=== PATIENT | female | born 1990 | race Caucasian/White ===

== ENCOUNTER → 2016-08-09 | Outpatient (CLI) | payer OTHER ==
[~2016-08-09] MED LIST: ALBU17IN2 INH; BACITAB3 PO; DESL5TAB4 PO; FURO20TA2 PO; KLOR1TAB77 PO; LEVO750T33 PO; MOVA1TAB2 PO; NICO21PAT TD; NO HOME MEDS; RANI15TA PO; SERT50TA PO; SUBO2MIS SL; TRAZ100T4 PO; VITMTA PO
[2016-08-09 09:50] LABS: ALBUMIN 3.7 GM/DL (3.2-5.2); ANION GAP 9 MEQ/L (8-16); BLOOD UREA NITROGEN 14 MG/DL (7-18); CALCIUM LEVEL 8.3 MG/DL (8.5-10.1); CARBON DIOXIDE LEVEL 24 MEQ/L (21-32); CHLORIDE LEVEL 109 MEQ/L (98-107); CREATININE FOR GFR 0.67 MG/DL (0.55-1.02); FREE T4 0.89 NG/DL (0.76-1.46); GLOMERULAR FILTRATION RATE > 60.0 (>60); GLUCOSE, FASTING 101 MG/DL (70-105); PHOSPHORUS LEVEL 3.3 MG/DL (2.5-4.9); SODIUM LEVEL 142 MEQ/L (136-145)
== END ==
LOC: M LAB 08:44
PROVIDERS: ATTEND Family Medicine
DX: I10 Essential (primary) hypertension (principal)

== ENCOUNTER → 2016-08-15 | Outpatient (CLI) | payer OTHER ==
[2016-08-15 16:18] LABS: MEAN CORPUSCULAR HEMOGLOBIN 33.2 pg (27.0-33.0); MEAN CORPUSCULAR HGB CONC 34.4 g/dl (32.0-36.5); MEAN CORPUSCULAR VOLUME 96.5 fl (80.0-96.0); RED CELL DISTRIBUTION WIDTH 12.8 % (11.5-14.5); WHITE BLOOD COUNT 6.8 K/mm3 (4.0-10.0)
[2016-08-15 16:38] LABS: ALBUMIN 3.7 GM/DL (3.2-5.2); ALBUMIN/GLOBULIN RATIO 1.12 (1.00-1.93); BILIRUBIN,DIRECT 0.2 MG/DL (0.0-0.2); BILIRUBIN,TOTAL 0.9 MG/DL (0.2-1.0)
[2016-08-15 19:43] LABS: EOSINOPHILS 1 % (0-5)
== END ==
LOC: M LAB 15:29
PROVIDERS: ATTEND Family Medicine
DX: R10.9 Unspecified abdominal pain (principal)

== ENCOUNTER → 2016-09-07 | Outpatient (CLI) | payer OTHER ==
--- NOTE | 2016-09-07 10:14 | REP ---
RIGHT UPPER QUADRANT ULTRASOUND: Real-time sonographic evaluation of the right upper quadrant performed. Multiple gallstones are seen in the gallbladder some of which are located in the neck of the gallbladder. There is no gallbladder wall thickening or pericholecystic fluid. The patient was tender at the site of the gallbladder. There is no intrahepatic or extrahepatic biliary dilatation, common bile duct measuring 3 mm in diameter. The liver and pancreas demonstrate no gross mass. Right kidney demonstrates no hydronephrosis or nephrolithiasis measuring 9.8 cm in length. Visualized abdominal aorta is normal in caliber. IMPRESSION: Multiple gallstones in the gallbladder without gallbladder wall thickening, pericholecystic fluid or biliary dilatation. Signed by Lucho Brooks MD 09/07/2016 03:26 P
== END ==
LOC: M RAD 07:18
PROVIDERS: ATTEND Family Medicine
DX: K80.20 Calculus of gallbladder without cholecystitis without obstruction (principal); R10.9 Unspecified abdominal pain

== ENCOUNTER → 2016-09-12 | Outpatient (CLI) | payer OTHER | LOC: M CARPUL 10:03 | PROVIDERS: ATTEND Family Medicine | DX: R94.31 Abnormal electrocardiogram [ECG] [EKG] (principal); Z87.74 Personal history of (corrected) congenital malformations of heart and circulatory system ==

== ENCOUNTER 2016-10-19 06:15 | Day surgery (SDC) | payer OTHER ==
[~2016-10-19] VITALS: Ht 147.3 cm; Wt 51.5 kg
[2016-10-19] VITALS (8 sets, daily range): BP systolic 103–135; BP diastolic 59–80
[~2016-10-19 06:15] MED LIST changes: +NEXP1IMP SC; +POTA20TA FT
[2016-10-19] MEDS ORDERED: LR 1,000 ML IV SCH ×2 (06:30→09:45)
[2016-10-19] MEDS ORDERED: ERTAPENEM SODIUM 1 GM in NS MINI-BAG PLUS 50 ML IV ONE (06:30)
[2016-10-19 06:43] LABS: CONTROL LINE UCG INT CTR LINE PRESENT
[2016-10-19] MEDS ORDERED: LIDOCAINE 1% SDV INJ 30 ML VIAL As Ordered ONE (07:15)
[2016-10-19] MEDS ORDERED: BUPIVACAINE HCL 0.25% 30 ML VIAL As Ordered ONE (07:15)
[2016-10-19] MEDS ORDERED: MIDAZOLAM INJ 2 MG/2 ML VIAL (J2250) As Ordered ONE (07:20)
[2016-10-19] MEDS ORDERED: LIDOCAINE 2% INJ 100 MG/5 ML SDV (FOR ANES.) As Ordered ONE (07:20)
[2016-10-19] MEDS ORDERED: PROPOFOL 200 MG/20 ML VIAL As Ordered ONE (07:20)
[2016-10-19] MEDS ORDERED: ROCURONIUM BROMIDE 50 MG/5 ML VIAL As Ordered ONE (07:20)
[2016-10-19] MEDS ORDERED: fentaNYL 250 MCG/5 ML INJECTION (J3010) As Ordered ONE (07:20)
[2016-10-19] MEDS ORDERED: ONDANSETRON 4MG/2ML VIAL (J2405) As Ordered ONE (08:24)
[2016-10-19] MEDS ORDERED: NEOSTIGMINE 1MG/ML 5 ML SYRINGE (J2710) As Ordered ONE (08:24)
[2016-10-19] MEDS ORDERED: GLYCOPYRROLATE INJ 0.2 MG/ML 2 ML VIAL As Ordered ONE (08:24)
[2016-10-19] MEDS ORDERED: dexameTHASONE 4 MG/ML 1ML VIAL (J1100) As Ordered ONE (08:24)
[2016-10-19] MEDS ORDERED: KETOROLAC 60 MG/2 ML VIAL (J1885) As Ordered ONE (08:41)
[2016-10-19] MEDS ORDERED: HYDROmorphone HCL 2 MG/ML 1ML VIAL (J1170) As Ordered ONE (09:01)
[2016-10-19] MEDS ORDERED: ACETAMINOPHEN TAB 650MG DOSE (2X325MG) PO PRN (09:15)
[2016-10-19] MEDS ORDERED: PERCOCET 5MG/325MG TAB PO PRN (09:15)
[2016-10-19] MEDS ORDERED: IBUP600T26 PO (09:19)
--- NOTE | 2016-10-19 09:39 | ROOPDOC ---
[facility] Report Of Operation Report of Operation DATE OF PROCEDURE: 10/19/16 PREPROCEDURE DIAGNOSES: Symptomatic Cholelithiasis. POSTPROCEDURE DIAGNOSES: Cholelithiasis, chronic cholecystitis PROCEDURE: Laparoscopic Cholecystectomy SURGEON: Lulu Reynolds MD ELECTRICIAN BUS: Julio C Mcguire MD ANESTHESIA: general ESTIMATED BLOOD LOSS: Approximately 10 mL. 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 DESCRIPTION OF PROCEDURE: . She is brought to the OR for laparoscopic cholecystectomy. She has given a dose of Invanz 1 g IV for prophylaxis given history of infective endocarditis and aortic valve replacement surgery. She was brought to the operating room, placed supine on the table. General endotracheal anesthesia started. Her abdomen prepped and draped in usual sterile fashion. She had compression stockings for DVT prophylaxis. After surgical timeout we began our surgery. Entry into the abdomen done through an incision at the bottom of the umbilicus. Veress needle inserted and intra-abdominal insufflation done to a pressure of 15 mmHg. Using the same incision a 5 mm Visiport was placed under direct vision laparoscope. She was then placed on the reverse Trendelenburg position, her right side tilted up about 30 to further expose the gallbladder. 3 working ports were placed in their usual position including 5 mm port at the epigastric area, and 3 mm ports along the right subcostal line. The gallbladder was noted to be moderately distended, extending several centimeters off from the liver edge. Liver appears smooth in appearance. Fundus of gallbladder was grasped and the gallbladder elevated superiorly exposing the infundibulum neck to gallbladder. There were some small adhesions at the underside of the gallbladder which was easily lysed. The hepato-cystic triangle was dissected both with [place] instrument and Bovie cautery. The cystic duct was identified as well as the cystic artery. There were both circumferentially dissected. The posterior wall of the neck of the gallbladder was likewise dissected free off the liver bed. Dissection of the Gallbladder neck done until we met the critical view of safety whereby only the previously identified cystic duct and cystic artery were coursing through the neck to gallbladder. The cystic artery was clipped 4 times and divided. We were able to further identify the anterior branch of the cystic artery and this was likewise clipped and divided. The cystic artery was clipped 4 times and subsequently divided. The rest of the gallbladder was then dissected off the liver bed with Bovie cautery. We enlarged the epigastric port site to accommodate the 10 mm Endo Catch bag and the gallbladder was delivered into the bag and retrieved from the epigastric port site using.. On re-insufflation, we examined our surgical site. Liver bed shows no bleeding. The clips at the cystic duct and artery were noted to be well placed. The abdomen was then deflated, all ports removed. The fascial defect at the epigastric port site was closed with 0 Vicryl. All skin incisions closed with 4-0 Monocryl in subcuticular fashion Dermabond was used for wound coverage. Patient was then promptly awake and extubated and brought to the recovery room stable sponges and instruments verified to be correct . MARIXA REYNOLDS MD October 19, 2016 08:16
[2016-10-19] MEDS ORDERED: HYDROmorphone HCL 1 MG/ML SYRINGE (J1170) As Ordered ONE ×2 (09:41→10:04)
[2016-10-19] MEDS: HYDROmorphone HCL 1 MG/ML SYRINGE (J1170) IV PRN ×5 (09:45→10:20)
[2016-10-19] MEDS ORDERED: ONDANSETRON 4MG/2ML VIAL (J2405) IV PRN (09:45)
[2016-10-19] MEDS ORDERED: fentaNYL 100 MCG/2 ML INJECTION (J3010) IV PRN (09:45)
[2016-10-19] MEDS ORDERED: ALBUTEROL SULFATE 2.5 MG/0.5 ML INH NEB SOLN As Ordered ONE (10:19)
[2016-10-19] MEDS ORDERED: ALBUTEROL SULFATE 2.5 MG/0.5 ML INH NEB SOLN INH ONE (10:45)
[2016-10-19] MEDS: SENOKOT S TAB PO SCH ×2 (11:27→21:32)
[2016-10-19] MEDS: POTASSIUM CHLORIDE 10 MEQ SR TABLET PO SCH (11:27)
[2016-10-19] MEDS: FUROSEMIDE 40 MG TAB PO SCH (11:27)
[2016-10-19] MEDS: LR 1,000 ML IV SCH ×2 (11:28→21:33)
[2016-10-19] MEDS: ASPIRIN 81 MG ENTERIC TAB PO SCH (11:28)
[2016-10-19] MEDS: PERCOCET 5MG/325MG TAB PO PRN ×2 (11:28→15:45)
[2016-10-19] MEDS ORDERED: PROMETHAZINE INJ 25 MG/ML VIAL (J2550) IV PRN (11:45)
[2016-10-19] MEDS: ONDANSETRON 4MG/2ML VIAL (J2405) IV PRN (15:45)
[2016-10-19] MEDS: KETOROLAC 30 MG/ML VIAL (J1885) IV PRN (16:22)
[2016-10-19] MEDS ORDERED: ALBUTEROL SULFATE 2.5 MG/0.5 ML INH NEB SOLN NEB ONE (20:30)
[2016-10-20] MEDS: KETOROLAC 30 MG/ML VIAL (J1885) IV PRN ×2 (00:41→09:01)
[2016-10-20 02:00] VITALS: BP 113/60
[2016-10-20] MEDS: ONDANSETRON 4MG/2ML VIAL (J2405) IV PRN (02:41)
[2016-10-20 06:00] VITALS: BP 121/61
[2016-10-20] MEDS ORDERED: METOCLOPRAMIDE INJ 10MG/2ML VIAL (J2765) IV PRN (08:45)
[2016-10-20] MEDS: FUROSEMIDE 40 MG TAB PO SCH (09:01)
[2016-10-20] MEDS: ASPIRIN 81 MG ENTERIC TAB PO SCH (09:01)
[2016-10-20] MEDS: SENOKOT S TAB PO SCH (09:01)
[2016-10-20] MEDS: POTASSIUM CHLORIDE 10 MEQ SR TABLET PO SCH (09:02)
[2016-10-20] MEDS: LR 1,000 ML IV SCH (09:02)
[2016-10-20 10:00] VITALS: BP 118/62
--- NOTE | 2016-10-20 16:40 | ECGEPIP ---
Stationary ECG Study [facility] Test Date: 2016-10-19 Pat Name: ROSELIA MORENO Department: Room: [place] [address] Gender: F Coronary Care Unit Nurse: : 1990 Requested By: DONATO Bunch Order Number: [id number] Reading MD: Aj Sotomayor Measurements Intervals [place] Rate: 77 P: 16 NH: 221 QRS: 90 QRSD: 102 T: 37 QT: 392 QTc: 444 Interpretive Statements SINUS RHYTHM WITH FIRST DEGREE AV BLOCK INCOMPLETE RIGHT BUNDLE BRANCH BLOCK NONSPECIFIC ST-T ABNORMALITY NOTED IN THE INFERIOR LEADS LEFT ATRIAL ENLARGEMENT NO PRIOR TRACING IN THE SYSTEM Electronically Signed On 10-20-2016 16:39:46 EDT by Aj Sotomayor
== END 2016-10-20 14:00 | disposition home or self-care (01) ==
LOC: M SDC 06:15 → M MSPAV 10:36 → M SDC 10-20 14:00
PROVIDERS: ATTEND Surgery
DX: K80.10 Calculus of gallbladder with chronic cholecystitis without obstruction (principal); I11.9 Hypertensive heart disease without heart failure; I33.0 Acute and subacute infective endocarditis; J30.2 Other seasonal allergic rhinitis; Q22.3 Other congenital malformations of pulmonary valve; F43.10 Post-traumatic stress disorder, unspecified; F41.9 Anxiety disorder, unspecified; J45.909 Unspecified asthma, uncomplicated; F17.210 Nicotine dependence, cigarettes, uncomplicated; Z88.0 Allergy status to penicillin; Z91.040 Latex allergy status; Z91.018 Allergy to other foods; Z79.899 Other long term (current) drug therapy; Z95.2 Presence of prosthetic heart valve; Z86.59 Personal history of other mental and behavioral disorders
CPT/HCPCS: 47562; 84703; 88304; 93005; 94640; J1100; J1170; J1335; J1885; J2250; J2405; J2710; J2765; J3010

== ENCOUNTER → 2016-12-06 | Outpatient (REF) | payer OTHER ==
[~2016-12-06] MED LIST changes: +BACITAB PO; -BACITAB3 PO; +IBUP-1022 PO; +LEVO750T13 PO; -LEVO750T33 PO; +TRAZ-136 PO; -TRAZ100T4 PO
== END ==
LOC: M LAB REF 17:03
PROVIDERS: ATTEND Surgery
DX: R19.7 Diarrhea, unspecified (principal)

== ENCOUNTER → 2018-03-06 | Outpatient (REF) | payer OTHER ==
[2018-03-06 19:00] LABS: BACTERIA, URINE AUTO 1+ (NEGATIVE); MUCUS, URINE SMALL (NEGATIVE); RBC, URINE AUTO 0 /HPF (0-3); SQUAMOUS EPITHELIAL CELL UR AU 1 /HPF (0-6); WBC, URINE AUTO 0 /HPF (0-3)
== END ==
LOC: M SMT 17:25
DX: N39.0 Urinary tract infection, site not specified (principal)
CPT/HCPCS: 81015

== ENCOUNTER 2018-10-03 20:04 | Emergency (ER) | payer OTHER, MEDICAID ==
[~2018-10-03] VITALS: Ht 149.9 cm; Wt 38.0 kg
[~2018-10-03 20:04] MED LIST changes: +KLOR20TA42 FT; +NICO21DI3 TD; -NICO21PAT TD; -POTA20TA FT; +SERT-141 PO; -SERT50TA PO; -TRAZ-136 PO; +TRAZ-163 PO
[2018-10-03 21:31] LABS: BASO % 0.3 % (0.0-1.0); EOS % 0.3 % (0.0-3.0); HEMATOCRIT 33.2 % (36.0-47.0); HEMOGLOBIN 11.1 g/dl (12.0-15.5); LYMPH # 0.6 10^3/uL (1.5-6.5); LYMPH % 8.3 % (24.0-44.0); MEAN CORPUSCULAR HEMOGLOBIN 28.2 pg (27.0-33.0); MEAN CORPUSCULAR HGB CONC 33.4 g/dl (32.0-36.5); MEAN CORPUSCULAR VOLUME 84.5 fl (80.0-96.0); MONO # 0.6 10^3/uL (0.0-0.8); MONO % 9.1 % (0.0-5.0); NEUTROPHILS # 5.4 10^3/uL (1.8-7.7); NEUTROPHILS % 81.4 % (36.0-66.0); RED BLOOD COUNT 3.93 10^6/uL (4.00-5.40); WHITE BLOOD COUNT 6.6 10^3/uL (4.0-10.0)
[2018-10-03 21:33] LABS: PLATELET COUNT, AUTOMATED 95 10^3/uL (150-450)
[2018-10-03] MEDS ORDERED: NS 1,000 ML IV ONE (21:45)
[2018-10-03 21:47] LABS: HCG, SERUM QUALITATIVE NEGATIVE (NEGATIVE)
[2018-10-03 21:51] LABS: ALT/SGPT 26 U/L (12-78); BILIRUBIN,DIRECT 0.2 MG/DL (0.0-0.2); BILIRUBIN,TOTAL 0.8 MG/DL (0.2-1.0); BLOOD UREA NITROGEN 11 MG/DL (7-18); CALCIUM LEVEL 8.3 MG/DL (8.5-10.1); CARBON DIOXIDE LEVEL 22 MEQ/L (21-32); CHLORIDE LEVEL 104 MEQ/L (98-107); CREATININE FOR GFR 0.77 MG/DL (0.55-1.30); GLOMERULAR FILTRATION RATE > 60.0 (>60); GLUCOSE, FASTING 156 MG/DL (70-100); LIPASE 31 U/L (73-393); POTASSIUM SERUM 4.1 MEQ/L (3.5-5.1); SODIUM LEVEL 137 MEQ/L (136-145)
[2018-10-03 21:52] LABS: INR 1.3; PROTHROMBIN TIME 16.4 SECONDS (12.1-14.4)
[2018-10-03 21:53] LABS: PARTIAL THROMBOPLASTIN TIME 69.1 SECONDS (25.4-37.6)
[2018-10-03] MEDS ORDERED: ISOVUE-370 76% 100ML VIAL (Q9967) As Ordered ONE (22:19)
[2018-10-03 22:22] LABS: ETHYL ALCOHOL (ETHANOL) < 0.003 % (0.000-0.010)
[2018-10-03 23:08] LABS: CPK CREATINE PHOSPHOKINASE 155 U/L (26-192)
[2018-10-03 23:26] LABS: AMPHETAMINES URINE REFLEX NEGATIVE (NEGATIVE); BARBITURATES URINE REFLEX NEGATIVE (NEGATIVE); BENZODIAZEPINES URINE REFLEX NEGATIVE (NEGATIVE); COCAINE METABOLITE URINE REFLE NEGATIVE (NEGATIVE); METHADONE URINE REFLEX NEGATIVE (NEGATIVE); OPIATES URINE REFLEX NEGATIVE (NEGATIVE); PHENCYCLIDINE URINE REFLEX NEGATIVE (NEGATIVE)
--- NOTE | 2018-10-03 23:32 | REPVR ---
EXAM: CT Abdomen and Pelvis With Contrast EXAM DATE/TIME: 10/03/2018 10:44 PM CLINICAL HISTORY: 28 years old, female; Abdominal pain; Generalized TECHNIQUE: Imaging protocol: Axial computed tomography images of the abdomen and pelvis with intravenous contrast. Coronal and sagittal reformatted images were created and reviewed. Radiation optimization: All CT scans at this facility use at least one of these dose optimization techniques: automated exposure control; mA and/or kV adjustment per patient size (includes targeted exams where dose is matched to clinical indication); or iterative reconstruction. Contrast material: ISOVUE 370; Contrast volume: 80 ml; Contrast route: IV; COMPARISON: CT ABD PELVIS WITH CONTRAST 10/19/2014 9:28 PM FINDINGS: Lungs: Some scarring in the lung bases. Since examination the 2014 there has been clearing of an area of infiltrate at the right lung base. Heart: There is prominent cardiomegaly. There is severe right atrial enlargement. Since previous 2015 CT there is an opaque line along the upper aspect of the right atrium. I could not exclude the possibility of some thrombus within the right atrium and I would recommend correlation with echocardiogram. Congenital variation of the heart and possible common atrium. ABDOMEN: Liver: Normal appearing liver. Gallbladder and bile ducts: Surgical clips are noted in the gallbladder fossa the patient is status post cholecystectomy. Pancreas: Normal size pancreas. Spleen: There is very severe splenomegaly. The splenomegaly has slightly decreased since 2015. The left kidney is displaced inferiorly secondary to the massive splenomegaly. The left kidney enhances. Adrenals: Normal adrenal glands. Kidneys and ureters: There is lack of opacification of the posterior aspect of the entire right kidney and suspicious for renal infarct. A mass or infection could give this appearance but thought less likely. Stomach and bowel: There is large amount stool throughout the colon consistent with constipation. The bowel could be further evaluated with oral contrast. Appendix: It is very difficult to identify the appendix. A CT scan with oral contrast would helpful to better evaluate the bowel. PELVIS: Bladder: There is only a small amount of urine in the urinary bladder. Reproductive: Normal size uterus. Follicular cysts in both ovaries. Vasculature: Opacification of the SMA. 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 There is opacification of very small iliac arteries which are supplied via collaterals. There is opacification of the very small femoral arteries. Multiple collateral vessels are identified within the mesentery and pelvis. A small presumed iliac arteries and femoral arteries could also be collateral vessels as they are much smaller than 2015 but follow the course of the iliac arteries and femoral arteries. Other findings: Opacification of the SMV. IMPRESSION: 1. Abnormal appearance of the heart and cardiomegaly. Large right atrium now with a opaque linear structure at the upper margin new since 2015. There is a filling defect within the right ventricle and the possibility of thrombus would have to be considered. I would recommend an echocardiography. 2. Congenital variation of the heart possible common atrium. History of congenital heart disease and truncus arteriosus. 3. There is low density and non-enhancement throughout the posterior aspect of the right kidney new since 2015, very suspicious for a large area of renal infarction. 4. 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 Thrombosis of the aortic bifurcation. Collateral vessels or small iliac arteries and femoral arteries opacify. 5. Massive splenomegaly also seen on the exam of 2015. 6. Severe constipation. Difficulty evaluating the bowel and I am unable to identify the appendix. Suggest CT scan with oral contrast for further evaluation of this. Findings were discussed with SHAHLA RINCON at 10/03/2018 11:32 PM EDT. Electronically signed by: Dickson Chavira On 10/03/2018 23:32:43 PM
[2018-10-03] MEDS ORDERED: HEPARIN DRIP 25,000 UNITS in APPROPRIATE DILUENT 1 EA IV SCH (23:35)
[2018-10-03] MEDS ORDERED: MORPHINE 4 MG/ML 1ML VIAL/SYRINGE (J2270) IV ONE (23:45)
[2018-10-03] MEDS ORDERED: HEPARIN SOD (PORCINE) 5000 UNITS/ML VIAL IV ONE (23:45)
[2018-10-03 23:57] LABS: CANNABINOIDS URINE REFLEX PENDING CONFIRMATION (NEGATIVE)
[2018-10-04] MEDS ORDERED: NS 1,000 ML IV ONE
[2018-10-04 01:17] VITALS: BP 142/65
[2018-10-09 00:07] LABS: Cannabinoid Positive (.); GC Carboxy THC >300 ng/mL (Cutoff=10)
== END 2018-10-04 01:29 | disposition short-term general hospital (02) ==
LOC: M ED 20:04
DX: I74.09 Other arterial embolism and thrombosis of abdominal aorta (principal); I51.3 Intracardiac thrombosis, not elsewhere classified; N28.0 Ischemia and infarction of kidney; I51.7 Cardiomegaly; R16.1 Splenomegaly, not elsewhere classified; K59.04 Chronic idiopathic constipation; Z79.51 Long term (current) use of inhaled steroids; Z88.0 Allergy status to penicillin; Z91.018 Allergy to other foods; Z91.040 Latex allergy status
CPT/HCPCS: 36415; 74177; 80048; 80076; 80307; 82550; 83605; 83690; 84703; 85025; 85049; 85055; 85610; 85730; 87040; 96361; 96374; 96375; 99284; G0480; J2270; Q9967

== ENCOUNTER 2019-04-03 11:40 | Emergency (ER) | payer OTHER ==
[~2019-04-03 11:40] MED LIST changes: +DESL1TAB3 PO; -DESL5TAB4 PO
[2019-04-03 11:57] VITALS: BP 96/48
[2019-04-03] MEDS ORDERED: TRAZ-163 OR (12:27)
[2019-04-03] MEDS ORDERED: TIZA4TAB4 OR (12:27)
--- NOTE | 2019-04-03 13:46 | REP ---
CT brain: 04/03/2019. Indication: Stroke. Comparison: MRI brain dated 08/02/2015. Technique: Unenhanced axial images of the brain were obtained from skull base to vertex. Findings: There is a somewhat ill-defined focus of hypoattenuation within the deep insula/posterior sanz radiata as well as the cortical spinal tract/posterior internal capsule. There is no significant mass effect. There is again somewhat ill-defined area of hyperattenuation within the extreme capsule on the right. There is no hydrocephalus or shift of the midline structures. Impression: Area of hypoattenuation within an adjacent area of possible hemorrhage without mass effect in the deep right insula and basal ganglia. Gadolinium enhanced MRI of the brain is recommended. Comment: The above findings were conveyed to the emergency department at the time of dictation. Electronically Signed by Kushal Carrizales DO 04/03/2019 01:37 P
--- NOTE | 2019-04-03 16:49 | REP ---
MRI brain: 04/03/2019. Indication: Stroke. Abnormal head CT. Comparison: 08/02/2015. Technique: Multiplanar short and long TR sequences of the brain were obtained without IV Gadolinium. Findings: There are multiple areas of abnormal signal including varying stages of restricted diffusion within the right frontal parietal temporal and occipital lobes, particularly noted are late subacute infarctions are correspond to the areas of hypoattenuation on the CT within the deep insular and posterior basal ganglia/posterior limb. There is no significant mass effect. No significant hemorrhage is detected. The previously described hyperattenuation on the CT may be attributable to recent contrast, please correlate. There is abnormal signal and corresponding restricted diffusion within the right brachium pontis and the right aspect of the middle gregorio, again without mass effect. There is no hydrocephalus. There is a little mass effect on the right lateral ventricle. At absent flow void of the right ICA is noted. There are new are diminished flow voids of the distal vertebral arteries, particularly on the left. Diminutive basilar flow void is noted. Impression: Multifocal predominantly right hemisphere infarctions of varying chronicity without significant hemorrhage or mass effect. These include both the anterior and posterior circulations as described. Likely occluded right ICA. Diminished flow within the V4 segments as described. Comment: The findings were conveyed to the emergency department at the time of dictation. Electronically Signed by Kushal Carrizales DO 04/03/2019 04:41 P
== END 2019-04-03 18:43 | disposition home or self-care (01) ==
LOC: M ED 11:40 → EDBD 11:40 → M ED 18:43
DX: I63.9 Cerebral infarction, unspecified (principal); J45.909 Unspecified asthma, uncomplicated; I50.9 Heart failure, unspecified; I38 Endocarditis, valve unspecified; F17.290 Nicotine dependence, other tobacco product, uncomplicated; Z79.899 Other long term (current) drug therapy; Z88.0 Allergy status to penicillin; Z91.040 Latex allergy status; Z91.018 Allergy to other foods